=== PATIENT | female | born 1950 | race Caucasian/White ===

== ENCOUNTER 2016-10-30 11:13 | Emergency (ER) | payer OTHER ==
[~2016-10-30] VITALS: Ht 157.5 cm; Wt 77.0 kg
[~2016-10-30 11:13] MED LIST: ACIPHEX20 MG PO; ADVIL200 M1 PO; AMITRIPTYLINE H75 M1 PO; ATENOLOL50 M1 PO; COLACE100 MG PO; Cipro PO; Colace PO; DULCOLAX5 MG PO; Dulcolax PO; ELAVIL75 MG PO; ENDOCET 5-3251 EACH PO; Elavil PO; FENOFIBRATE134 M1 PO; FENOGLIDE40 MG PO; IMITREX100 MG PO; K-DUR20 MEQ PO; K-Dur PO; K-TAB10 MEQ PO; LASIX10 MG PO; LASIX20 MG PO; Lasix PO; ONE DAILY1 EAC3 PO; PRAVACHOL40 MG PO; PRAVACHOL80 MG PO; PROTONIX40 MG PO; Pravachol PO; Protonix PO; SIMVASTATIN80 M1 PO; SIMVASTATIN80 MG PO; Senokot S,Pericolace PO; TENORMIN50 MG PO; TOPAMAX100 MG PO; TOPROL XL100 MG PO; TYLENOL EXTRA500 MG PO; Tenormin PO; Theragran PO; Tylenol Regular Stre PO; ZANTAC150 M1 PO; methadone
[2016-10-30 12:35] LABS: INFLUENZA A VIRAL ANTIGEN NEGATIVE; INFLUENZA B VIRAL ANTIGEN NEGATIVE
[2016-10-30] MEDS ORDERED: ZITHROMAX Z-PA250 MG PO (13:21)
[2016-10-30 13:28] VITALS: BP 154/79
== END 2016-10-30 13:29 | disposition home or self-care (01) ==
LOC: EME 11:13
PROVIDERS: Emergency Medicine
DX: J20.9 Acute bronchitis, unspecified (principal); I10 Essential (primary) hypertension
CPT/HCPCS: 71020; 87502; 87651 90; 94640; 99281; 99284